=== PATIENT | male | born 1970 | race Caucasian/White ===

== ENCOUNTER 2017-03-14 08:30 | Inpatient (IN) | payer BC, MEDICAID ==
--- NOTE | 2017-03-13 07:02 | PREOPHP ---
DATE OF ADMISSION: 03/14/2017 SCHEDULED DAY OF SURGERY: 03/14/2017 REQUESTING PHYSICIAN: Dr. Cody Bailey Dear Dr. Bailey: Thank you very much for asking me to participate in the care of Mr. Wong. He is an almost 47-year-old [place] gentleman with L4-L5 disk disease on the left. He has failed all conservative attempts at treatment and is coming in electively to have this taken care of. Please note he has had a prior right- sided L4-L5 diskectomy in roughly 1997. PAST MEDICAL HISTORY: 1. Status post L4-L5 right microdiskectomy, 1997. 2. L4-L5 left-side disk disease with sciatica. 3. Usual childhood diseases. 4. History of varicella. 5. Recurrent tonsillitis with tonsillar hypertrophy. 6. Possible obstructive sleep apnea. ALLERGIES: HE HAS NO KNOWN MEDICAL ALLERGIES. MEDICATIONS: His only medications are [place] on a p.r.n. basis. HABITS: He smokes 2 packs of cigarettes a day. He has 1 unit of alcohol every other day. Denies caffeine or recreational drugs. SOCIAL HISTORY: He was born in [facility] and raised there. He has lived in the [place] since 1987. He works as a dispatcher for a business. He is and lives with his spouse and son and [id number] but no pets. FAMILY HISTORY: Positive for coronary artery disease, positive for diabetes, positive for hypertension, positive for stroke. Negative for asthma, negative for glaucoma, negative for migraine, negative for colon cancer, negative for prostate cancer, negative for anesthesia reactions. REVIEW OF SYSTEMS: HEAD AND EYES: Fully negative. EARS, NOSE, THROAT: Negative. RESPIRATORY: Negative. CARDIAC: Fully negative. GASTROINTESTINAL: Negative. HEMATOLOGIC: Negative. UROLOGIC: Negative. MUSCULOSKELETAL: Negative. NEUROLOGIC: Negative. ENDOCRINE: Negative. PSYCHIATRIC: Negative. GENERAL: No weight change. No fever, chills or sweats. No changing skin lesions, but he does have review of systems consistent with obstructive sleep apnea. PHYSICAL EXAMINATION: VITAL SIGNS: At time of physical exam, he has a height of 5 feet 9 inches, weight 212.9 pounds. Blood pressure is 128/70, pulse 84, temperature is 98.3, respirations 18. HEENT: NC/AT. PERRL, EOMI, anicteric. Fundi are without note. Tympanic membranes are without note. Oropharynx demonstrates no lesions. However, he has marked bilateral tonsillar hypertrophy. NECK: Supple. There is a midline trachea. There is no thyromegaly. RESPIRATORY: No wheezing. Normal AP diameter. CARDIAC: No JVD. Regular rate and rhythm without rubs, murmurs or gallops. ABDOMEN: Soft, nontender. Active bowel sounds. No hepatosplenomegaly, no CVA tenderness, no hernias and no bruits. EXTREMITIES: No clubbing, cyanosis or edema. However, he has significant issues with ambulation and has a very positive straight-leg raise. LABORATORY DATA: Sodium 141, potassium 4.4, chloride 102, bicarbonate 27, BUN 17, creatinine 0.7, random blood sugar 92. White count 8.3, hemoglobin 17.4, hematocrit 52.6, platelet count is 280. Protime 11.6 with an INR of 0.99, PTT is 25 seconds. Urinalysis: 1.020, pH of 7, trace blood. Dipsticks otherwise negative. EKG is sinus rhythm at 81 with intervals 0.16, 0.09, 0.36 and axis of 60 degrees , normal morphology. Chest x-ray demonstrated normal cardiac size and silhouette. Normal bones, soft tissue. Normal lungs in spite of the smoking. ASSESSMENT AND PLAN: Preoperative medical consultation prior to elective lumbar microdiskectomy on the left L4-L5. At this time I find Mr. Wong to be an acceptable surgical candidate and concur with your plans to proceed with surgery. He is at average surgical risk as compared to his age-matched peers and should do well using all standard and routine anesthesia precautions. I have gotten the patient to contract with me to hold off on all smoking between the dates of seeing him in the office and him coming in for the surgery. One additional item: Given the significant tonsillar hypertrophy and the symptoms of obstructive sleep apnea, I believe in the evening times he should have nocturnal BiPAP while he is in the hospital, and he should be a careful extubation after surgery. I will follow him along in the hospital with you. Respectfully yours, Dictated By: JOYCELYN DUVAL MD, JR/PARVIN Conf#: [id number] DID#: [id number] CC: CODY BAILEY MD;*EndCC* [facility]
[2017-03-13 15:26] VITALS: BMI 30.9
[~2017-03-14] VITALS: Ht 175.3 cm; Wt 97.6 kg
[2017-03-14] VITALS (25 sets, daily range): BP systolic 99–138; BP diastolic 58–92; PULSE 80–100; RESP 14–20; Ht 175.3 cm; Wt 97.6 kg
[2017-03-14] MEDS ORDERED: LACTATED RINGER'S 1,000 ML IV* ONE (09:30)
[2017-03-14] MEDS ORDERED: CEFAZOLIN 2 GM/50 ML (PMX) 50 ML IVPB ONE ×2 (09:30→11:26)
[2017-03-14] MEDS ORDERED: NORCO PO (09:46)
[2017-03-14] MEDS ORDERED: PROPOFOL 100 ML ONE (10:56)
[2017-03-14] MEDS ORDERED: SUCCINYLCHOLINE CHLORIDE 100 MG/5 ML SYG IV ONE (10:56)
[2017-03-14] MEDS ORDERED: FENTAnyl 50 MCG/ML VIAL ONE ×2 (10:56→12:04)
[2017-03-14] MEDS ORDERED: MIDAZOLAM 1 MG/ML 2 ML INJ ONE ×2 (10:56→12:04)
[2017-03-14] MEDS ORDERED: ROCURONIUM 50 MG INJ ONE ×2 (10:56→10:57)
--- NOTE | 2017-03-14 11:33 | HPN ---
Date/Time of Note Date/Time of Note DATE: 03/14/17 TIME: 11:33 Interval H&P Admission Note Pt. seen H&P reviewed: No system changes GOMEZ BAILEY MD Mar 14, 2017 11:33
[2017-03-14] MEDS ORDERED: BUPIVACAINE 0.25% (MPF) 10 ML 10 ML VIAL ONE (11:41)
[2017-03-14] MEDS ORDERED: POLYMYXIN/BACITRACIN 1L IRRIG ONE (11:41)
[2017-03-14] MEDS ORDERED: GELATIN SIZE 100 SPONGE ONE (11:41)
[2017-03-14] MEDS ORDERED: THROMBIN 5000 UNIT VIAL ONE (11:41)
[2017-03-14] MEDS ORDERED: ACETAMINOPHEN 1000MG/100ML IV 100 ML ONE (12:28)
[2017-03-14] MEDS ORDERED: POLYMYXIN/BACITRACIN 1L IRRIG IRR ONE (12:31)
[2017-03-14] MEDS ORDERED: BUPIVACAINE 0.25% (MPF) 10 ML 10 ML VIAL INJ ONE (12:31)
[2017-03-14] MEDS ORDERED: hydrALAzine 20 MG INJ ONE (12:44)
[2017-03-14] MEDS ORDERED: LABETALOL HCL 20MG INJ ONE (12:44)
[2017-03-14] MEDS ORDERED: PHENYLephrine (100 MCG/ML) 5ML SYG ONE (12:46)
[2017-03-14] MEDS ORDERED: EPHEDrine SULFATE 50 MG/5 ML SYG IV PRN (13:30)
[2017-03-14] MEDS ORDERED: ALBUTEROL 0.083% (NEB) 2.5 MG/3 ML AMP HHN ONE (13:30)
[2017-03-14] MEDS ORDERED: morphine (1 MG/ML) 10ML SYRINGE IV PRN ×3 (13:30)
[2017-03-14] MEDS ORDERED: MEPERIDINE 25 MG INJ IV PRN (13:30)
[2017-03-14] MEDS ORDERED: IPRATROPIUM (NEB) 0.5 MG/2.5 ML AMP HHN ONE (13:30)
[2017-03-14] MEDS ORDERED: METOCLOPRAMIDE 10 MG INJ IV PRN (13:30)
[2017-03-14] MEDS ORDERED: LABETALOL HCL 20MG INJ IV PRN (13:30)
[2017-03-14] MEDS ORDERED: ALBUMIN HUMAN 5% 250 ML IV PRN (13:30)
[2017-03-14] MEDS ORDERED: HYDROmorphONE (0.2 MG/ML) 10ML SYG IV PRN ×2 (13:30)
[2017-03-14] MEDS ORDERED: hydrALAzine 20 MG INJ IV PRN (13:30)
[2017-03-14] MEDS ORDERED: DIPHENHYDRAMINE 50 MG INJ IV PRN (13:30)
[2017-03-14] MEDS ORDERED: ONDANSETRON 4 MG INJ IV PRN ×2 (13:30→14:30)
[2017-03-14] MEDS ORDERED: GLYCOPYRROLATE 0.4 MG INJ ONE (13:35)
[2017-03-14] MEDS ORDERED: NEOSTIGMINE 3 MG/3 ML SYRINGE ONE (13:35)
[2017-03-14] MEDS ORDERED: FAMOTIDINE 20 MG INJ ONE (13:38)
[2017-03-14] MEDS: HYDROmorphONE (0.2 MG/ML) 10ML SYG IV PRN ×2 (14:12→14:37)
[2017-03-14] MEDS: DEXTROSE 5%-0.45% NACL 1,000 ML IV SCH ×2 (14:16→23:54)
--- NOTE | 2017-03-14 14:23 | OPR ---
Date/Time of Note Date/Time of Note DATE: 03/14/17 TIME: 14:19 Operative Report Preoperative Diagnosis Recurrent HNP L4-5 Postoperative Diagnosis same Operation Performed Redo left hemilaminotomy L4 Redo microdiscectomy L4-5 on the left Medial facetectomy and foraminotomy L4-5 on the left Revision of scar (3.0 cm) Lateral localizing lumbar radiographs (2) Intraoperative nerve monitoring (1 hour) Surgeon: GOMEZ BAILEY MD family practice physician assistant: TRISTAN MONTES Anesthesia: general Estimated Blood Loss: 0 - 10 ml's Specimens HNP L4-5 Tubes/Drains Two medium Hemovac drains Complications: None Pt Condition Post Procedure: stable Disposition: PACU Operative\Procedure Findings At surgery, moderately severe recurrent disc herniation at L4-5 on the left with extruded disc fragments was confirmed. GOMEZ BAILEY MD Mar 14, 2017 14:23
[2017-03-14] MEDS ORDERED: DIPHENHYDRAMINE 50 MG CAP PO PRN (14:30)
[2017-03-14] MEDS ORDERED: PROCHLORPERAZINE 10 MG TAB PO PRN (14:30)
[2017-03-14] MEDS ORDERED: ZOLPIDEM 5 MG TAB PO PRN (14:30)
[2017-03-14] MEDS ORDERED: CEPASTAT LOZENGE MT PRN (14:30)
[2017-03-14] MEDS ORDERED: TRIMETHOBENZAMIDE 100 MG/ML VIAL IM PRN (14:30)
[2017-03-14] MEDS ORDERED: DIAZEPAM 5 MG/ML SYG IM PRN (14:30)
[2017-03-14] MEDS ORDERED: AL HYDROX/MG HYDROX/SIMETH 30 ML CUP PO PRN (14:30)
[2017-03-14] MEDS ORDERED: BETHANECHOL 25 MG TAB PO PRN (14:30)
[2017-03-14] MEDS ORDERED: NALOXONE (0.4 MG/ML) INJ IV PRN (14:30)
[2017-03-14] MEDS ORDERED: HYDROCODONE/APAP (5/325) TAB PO PRN (14:30)
[2017-03-14] MEDS ORDERED: NACL 0.9% 3 ML SYG IV SCH (14:30)
[2017-03-14] MEDS ORDERED: ACETAMINOPHEN 325 MG TAB PO PRN (14:30)
[2017-03-14] MEDS: HYDROmorphONE 0.2 MG/ML PCA IV SCH (14:42)
--- NOTE | 2017-03-14 15:02 | OPR ---
DATE OF OPERATION: 03/14/2017 PREOPERATIVE DIAGNOSIS: Recurrent disk herniation, L4-L5 on the left, with extruded fragments. POSTOPERATIVE DIAGNOSIS: Recurrent disk herniation, L4-L5 on the left, with extruded fragments. OPERATIONS PERFORMED: 1. Redo left hemilaminotomy, L4. 2. Redo microdiskectomy, L4-L5 on the left. 3. Medial facetectomy and foraminotomy, L4-L5 on the left. 4. Revision of scar (3 cm). 5. Lateral localized lumbar radiographs (2). 6. Intraoperative nerve monitoring (1 hour). SURGEON: Cody Cabrera MD JOINT CUTTER MACHINE: MIROSLAVA Alexander ANESTHESIA: General endotracheal. ANESTHESIOLOGIST: Dr. Peterson ESTIMATED BLOOD LOSS: 10 mL, none replaced. DRAINS: Two medium Hemovac drains employed. COMPLICATIONS: None. PERTINENT HISTORY AND PHYSICAL: This is a 46-year-old male with severe back and left leg pain, diff iculty walking, which has been unrelieved by conservative management. He has undergone a number of diagnostic studies including an MRI of the lumbar spine which demonstrated a recurrent disk herniati on at L4-L5 on the left. Treatment options were discussed with the patient who elected to proceed with surgery. OPERATIVE FINDINGS AT SURGERY: A large recurrent disk herniation at L4-L5 on the left was confirmed . Baseline intraoperative nerve monitoring revealed a decrease in the left L4 potential of 30%, the left L5 potential of 40%. These all returned to normal at the completion of the surgery. OPERATIVE PROCEDURE: With the patient in supine position after satisfactory induction of general en dotracheal anesthesia by Dr. Peterson, the patient was turned to the prone kneeling position on the [facility] frame. All pressure points were carefully padded. Back was prepped and draped in the usual sterile fashion. Athrombic pumps were applied below the knees to prevent venous stasis during and after procedure. An indwelling follow catheter was also placed preoperatively to facilitate bladder drainage during and after the procedure. Two spinal needles were placed next to what was felt to b e the L4 and L5 spinous processes, lateral roentgenogram was taken which confirmed anatomic localiza tion. A 3.0 cm incision was carried out midline over the spinous process of L4 after the skin was i nfiltrated with 0.25% Marcaine without epinephrine for postoperative analgesia. Superficial retract ors were placed and hemostasis secured with electrocautery. Throughout the procedure, copious amoun ts of antibacterial irrigating solution were used to periodically irrigate the wound. The fascia wa s incised in midline with a hot knife and a unilateral subperiosteal dissection carried out at L4 on the left. Deep retractors were placed and deep hemostasis secured with electrocautery. A second i ntraoperative radiograph was taken with deep retractor at what was felt to be the L4-L5 interspace, and this was confirmed with a second x-ray. A redo left hemilaminotomy was then carried out using s mall Kerrison punches and curettes after the scar was peeled off of the remnant of the lamina and me dial aspect of the facet joint. The medial facetectomy and foraminotomy was then carried out using small hand osteotome, mallet, Kerrison punches, and curettes. The L5 root was mobilized medially an d protected with Belle nerve root retractor using microdissection technique. This revealed a lar ge extruded disk herniation at L4-L5 on the left. A 15 blade knife was used to cut a rectangular wi ndow in the annulus and posterior longitudinal ligament and multiple degenerative disk fragments wer e harvested with pituitary rongeurs and sent to laboratory for pathologic study. Additional fragmen ts were harvested using Julien curettes. A thorough search of the floor of the canal was made with an arthroscopic probe. No additional fragments were encountered. The epidural hemostasis was secu red with bipolar electrocautery on a low setting. The anesthesiologist was asked to perform a Valsa lva maneuver at 40 mmHg and no spinal fluid leak was noted. The wound was then closed in layers ove r 2 medium Hemovac drains, one below the fascia and one above the fascia using #1 Vicryl figure-of- eight approximating sutures in deep paralumbar musculature and deep fascia of back, 2-0 Vicryl subcu taneous approximating sutures in subQ tissue, and a 4-0 Vicryl subcuticular cosmetic closing suture on the skin. Dermabond and sterile compressive dressings were applied. The patient having tolerate d procedure well, was then turned to the supine position onto his bed and extubated by Dr. Peterson. He was transported to the recovery room in satisfactory condition. At the conclusion of the proced ure, sponge, instrument, and needle counts were all correct. NEED FOR YARD SUPERVISOR COTTON GIN: During this spinal surgical procedure, my office assistant was used to retrac t and protect the spinal nerves and dural sac. My office assistant also employed the suction catheters to e vacuate blood from the surgical field to improve visualization of the neural structures. The assista nt was medically necessary to facilitate the completion of the surgery in a safe and expeditious man ner. The [facility] regulations, as well as hospital bylaws, preclude the use of non-licensed [facility] care personnel such as operating room technicians, to perform these functions. Throughout the procedure, neuromonitoring was carried out by [employer] in cluding EMG, SSEP, and MEP monitoring of the L3, L4, L5, and S1 nerve roots bilaterally along with s ina cord potentials. These were interpreted by a neurologist employed by [employer]. Dictated By: CODY CABRERA MD TM/NTS Conf#: [id number] DID#: [id number] CC: JOYCELYN DUVAL MD;*End*
--- NOTE | 2017-03-14 16:16 | RADRPT ---
PROCEDURE: Intraoperative XR. CLINICAL INDICATION: Intraoperative radiograph during lumbar spine surgery. TECHNIQUE: Spot intraoperative lateral lumbar x-ray image was provided. The images were reviewed on a high-resolution PACS workstation. COMPARISON: None available FINDINGS: Spot intraoperative lateral lumbar view were provided during lumbar spine surgery. The images demon strate metallic instrumentation at the level of L4-5. IMPRESSION: 1. Spot intraoperative lateral lumbar view during L4-5 microdiskectomy were provided. 2. Please see operative report of the same day for further information. RPTAT: HGAS .Madi Hardin MD, Date Time Electronically viewed and signed by .Madi Hardin MD, MD on 03/14/2017 16:15 .S/
[2017-03-14] MEDS: CEFAZOLIN 1 GM/50 ML (PMX) 50 ML IVPB SCH ×2 (16:58→23:53)
[2017-03-14] MEDS ORDERED: CEFAZOLIN 1 GM/50 ML (PMX) 50 ML IVPB ONE (16:58)
--- NOTE | 2017-03-14 18:08 | PN ---
Date/Time of Note Date/Time of Note DATE: 03/14/17 TIME: 18:06 Assessment/Plan VTE Prophylaxis VTE Prophylaxis Intervention: anti-embolic stocking Lines/Catheters IV Catheter Type (from Nrsg): Peripheral IV Assessment/Plan Problems: (1) Obstructive sleep apnea hypopnea, moderate Status: Chronic Comment: Noted. The patient's been stable. As an outpatient he will need initially a tonsillectomy and then formalized sleep study and treatment. (2) Lumbar disc disease with radiculopathy Status: Chronic Comment: He is postop and significantly more comfortable. (3) Status post lumbar discectomy Status: Acute Comment: He is postop and significantly more comfortable. There is no evidence of any type of untoward or unexpected postoperative issue Subjective 24 Hr Interval Summary Free Text/Dictation Patient is postop recovering and resting in the hospital bed in his room. He reports that the preoperative pain that he had is gone. He denies other complaints. Constitutional: no complaints Respiratory: no complaints Cardiovascular: no complaints Gastrointestinal: no complaints Genitourinary: no complaints Exam/Review of Systems Vital Signs Vitals Vital Signs Date Time Temp Pulse Resp B/P Pulse Ox O2 Delivery O2 Flow Rate FiO2 03/14/17 17:47 98.0 99 19 123/78 99 03/14/17 17:00 Room Air Exam Charming gentleman lying in bed who is significantly more comfortable than he was 72 hours ago Constitutional: alert, oriented Neck: non-tender, supple Respiratory: clear to auscultation, normal air movement Cardiovascular: nl pulses, regular rate and rhythm Medications Medications Current Medications Lactated Ringer's 1,000 ml @ 20 mls/hr Q24H ONCE IV* Last administered on t 17:00; Admin Dose 20 MLS/HR; Start 03/14/17 at 09:30; Stop 03/15/17 at 09:29 Dextrose/Sodium Chloride (D5-1/2ns) 1,000 ml @ 100 mls/hr Q10H IV ; Start at 14:16 Acetaminophen/ Hydrocodone Bitart ([place] (5/325)) 1 tab Q4H PRN PO PAIN LEVEL 1 -5; Start 03/14/17 at 14:30 Acetaminophen/ Hydrocodone Bitart 2 tab 2 tab Q4H PRN PO PAIN LEVEL 6-10; Start 03/14/17 at 14:30 Cefazolin Sodium (Ancef 1 Gm/50 ml (Pmx)) 50 ml @ 100 mls/hr Q6 IVPB Last administered on 03/14/17t 16:58; Admin Dose 100 MLS/HR; Start 03/14/17 at 18:00; Stop 03/15/17 at 12:29 Zolpidem Tartrate (Ambien) 5 mg HS PRN PO INSOMNIA; Start 03/14/17 at 14:30 Prochlorperazine (Compazine) 10 mg Q4H PRN PO NAUSEA AND/OR VOMITING; Start 03/14/17 at 14:30 Trimethobenzamide HCl (Tigan) 200 mg Q4H PRN IM NAUSEA AND/OR VOMITING; Start 03/14/17 at 14:30 Ondansetron HCl (Zofran Inj) 4 mg Q6H PRN IV NAUSEA AND/OR VOMITING; Start 03/14 at 14:30 Al Hydrox/Mg Hydrox/Simethicone (Mag-Al Plus) 15 ml Q4H PRN PO CONSTIPATION; Start 03/14/17 at 14:30 Docusate Sodium (Colace) 100 mg BID PO ; Start 03/15/17 at 09:00 Acetaminophen (Tylenol Tab) 650 mg Q4H PRN PO TEMP GREATER THAN 101F OR CARTER; Start 03/14/17 at 14:30 Ascorbic Acid (Vitamin C) 1,000 mg BID PO ; Start 03/15/17 at 09:00 Ferrous Sulfate (Ferrous Sulfate (Ec)) 325 mg TID PO ; Start 03/15/17 at 09:00 Ranitidine HCl (Zantac) 150 mg BID PO ; Start 03/14/17 at 21:00 Diazepam (Valium) 5 mg Q4H PRN PO MUSCLE SPASMS; Start 03/14/17 at 14:30 Diazepam (Valium) 5 mg Q4H PRN IM MUSCLE SPASMS; Start 03/14/17 at 14:30 Phenol (Cepastat Lozenge) 1 lozenge PRN PRN MT SORE THROAT; Start 03/14/17 at 14 :30 Bethanechol Chloride (Urecholine) 25 mg PRN PRN PO UNABLE TO VOID; Start at 14:30 Diphenhydramine HCl (Benadryl) 50 mg Q6H PRN PO PRURITUS; Start 03/14/17 at 14: 30 Hydromorphone HCl (Dilaudid PR[employer]ARDS ROUTER) Q4PCA IV Last administered on 03/14/17t 14:42 ; Admin Dose 6 MG; Start 03/14/17 at 14:30 Naloxone HCl (Narcan) 0.2 mg Q2M PRN IV RR 8 BREATHS/MIN OR LESS; Start at 14:30 JOYCELYN DUVAL MD Mar 14, 2017 18:08
--- NOTE | 2017-03-14 18:56 | RADRPT ---
PROCEDURE: Intraoperative XR. CLINICAL INDICATION: Intraoperative radiograph during L4-5 microdiskectomy. TECHNIQUE: Spot intraoperative lateral lumbar x-ray image was provided. The images were reviewed on a high-resolution PACS workstation. COMPARISON: None available FINDINGS: Spot intraoperative lateral lumbar view were provided during L4-5 microdiskectomy. The images demon strate metallic probes at the level of L4 and L5. IMPRESSION: 1. Spot intraoperative lateral lumbar view during L4-5 microdiskectomy were provided. 2. Please see operative report of the same day for further information. RPTAT: HGAS .Madi Hardin MD, Date Time Electronically viewed and signed by .Madi Hardin MD, on 03/14/2017 18:56 .S/
[2017-03-14] MEDS: RANITIDINE 150 MG TAB PO SCH (20:19)
[2017-03-14] MEDS: DIAZEPAM 5 MG TAB PO PRN (22:34)
[2017-03-15 00:15] VITALS: BP 134/74; RESP 20
[2017-03-15] MEDS: HYDROmorphONE 0.2 MG/ML PCA IV SCH (00:51)
[2017-03-15] MEDS: DIAZEPAM 5 MG TAB PO PRN (03:30)
[2017-03-15 05:15] LABS: HEMATOCRIT 40.8 % (42.0-52.0); HEMOGLOBIN 13.7 g/dl (14.0-18.0)
[2017-03-15] MEDS: CEFAZOLIN 1 GM/50 ML (PMX) 50 ML IVPB SCH ×2 (05:20→12:25)
[2017-03-15 05:34] LABS: CALCIUM 8.9 mg/dl (8.4-10.2); CREATININE 0.7 mg/dl (0.61-1.24); POTASSIUM 3.9 mmol/L (3.5-5.1)
--- NOTE | 2017-03-15 07:02 | PN ---
Date/Time of Note Date/Time of Note DATE: 03/15/17 TIME: 07:01 Assessment/Plan Lines/Catheters IV Catheter Type (from Nrs): Saline Lock Jeter in Place (from Nrsg): No Subjective 24 Hr Interval Summary The patient is postop day #1 following a redo microdiscectomy at L4-5 on the left. He is resting comfortably in bed. His neurovascular structures are intact distally. His morning lab work is unremarkable. He has minimal drainage from his Hemovac, and will be discontinued. He will be seen by physical therapy, and may be discharged later today if cleared by physical therapy. Follow-up instructions have been given Exam/Review of Systems Vital Signs Vitals Vital Signs Date Time Temp Pulse Resp B/P Pulse Ox O2 Delivery O2 Flow Rate FiO2 03/15/17 05:02 18 03/15/17 00:15 98.6 91 134/74 97 03/14/17 20:30 Room Air Intake and Output 03/14/17 03/14/17 03/15/17 15:00 23:00 07:00 Intake Total 1400 ml 200 ml 1875 ml Output Total 270 ml 505 ml 1972 ml Balance 1130 ml -305 ml -97 ml Results Result Diagram: 03/15/17 0430 03/15/17 0430 GOMEZ BAILEY MD Mar 15, 2017 07:02
[2017-03-15] MEDS ORDERED: BETHANECHOL 25 MG TAB PO PRN (08:00)
--- NOTE | 2017-03-15 08:29 | PN ---
Date/Time of Note Date/Time of Note DATE: 03/15/17 TIME: 08:27 Assessment/Plan VTE Prophylaxis VTE Prophylaxis Intervention: SCD's Lines/Catheters IV [facility] Saline Lock Urinary Cath still in place: No Assessment/Plan Problems: (1) Obstructive sleep apnea hypopnea, moderate Status: Chronic Comment: Noted. This will be addressed as an outpatient. (2) Status post lumbar discectomy Status: Acute Comment: It appears he is going to have a good outcome. There is been no surgical complications or other types of unexpected postoperative issues. Assuming that physical therapy gets him straightened away and be discharged later today. Subjective 24 Hr Interval Summary Free Text/Dictation Patient resting in bed reports he feels much better. No offered complaints. Constitutional: no complaints (No fevers chills or sweats) Respiratory: no complaints Cardiovascular: no complaints Gastrointestinal: no complaints Musculoskeletal: back pain (Incisional back pain) Neurologic: no complaints (Symptoms improved postop) Exam/Review of Systems Vital Signs Vitals Vital Signs Date Time Temp Pulse Resp B/P Pulse Ox O2 Delivery O2 Flow Rate FiO2 03/15/17 05:02 18 03/15/17 00:15 98.6 91 134/74 97 03/14/17 20:30 Room Air Intake and Output 03/14/17 03/14/17 03/15/17 15:00 23:00 07:00 Intake Total 1400 ml 200 ml 1875 ml Output Total 270 ml 505 ml 1972 ml Balance 1130 ml -305 ml -97 ml Exam Constitutional: alert, oriented Respiratory: clear to auscultation, normal air movement Cardiovascular: nl pulses, regular rate and rhythm Gastrointestinal: nl liver, spleen, non-tender, soft Extremities: normal pulses, other (Able to move extremities) Results Result Diagram: 03/15/17 0430 03/15/17 0430 Results 24 hrs Laboratory Tests Test 03/15/17 04:30 Hemoglobin 13.7 L Hematocrit 40.8 L Sodium Level 140 Potassium Level 3.9 Chloride Level 106 Carbon Dioxide Level 27 Anion Gap 11 Blood Urea Nitrogen 8 Creatinine 0.70 Glucose Level 109 Calcium Level 8.9 Medications Medications Current Medications Lactated Ringer's 1,000 ml @ 20 mls/hr Q24H ONCE IV* Last administered on t 17:00; Admin Dose 20 MLS/HR; Start 03/14/17 at 09:30; Stop 03/15/17 at 09:29 Dextrose/Sodium Chloride (D5-1/2ns) 1,000 ml @ 100 mls/hr Q10H IV Last administered on 03/14/17 23:54; Admin Dose 100 MLS/HR; Start 03/14/17 at 14:16 Acetaminophen/ Hydrocodone Bitart ([place] (5/325)) 1 tab Q4H PRN PO PAIN LEVEL 1 -5; Start 03/14/17 at 14:30 Acetaminophen/ Hydrocodone Bitart 2 tab 2 tab Q4H PRN PO PAIN LEVEL 6-10; Start 03/14/17 at 14:30 Cefazolin Sodium (Ancef 1 Gm/50 ml (Pmx)) 50 ml @ 100 mls/hr Q6 IVPB Last administered on 03/15/17 05:20; Admin Dose 100 MLS/HR; Start 03/14/17 at 18:00; Stop 03/15/17 at 12:29 Zolpidem Tartrate (Ambien) 5 mg HS PRN PO INSOMNIA; Start 03/14/17 at 14:30 Prochlorperazine (Compazine) 10 mg Q4H PRN PO NAUSEA AND/OR VOMITING; Start 03/14/17 at 14:30 Trimethobenzamide HCl (Tigan) 200 mg Q4H PRN IM NAUSEA AND/OR VOMITING; Start 03/14/17 at 14:30 Ondansetron HCl (Zofran Inj) 4 mg Q6H PRN IV NAUSEA AND/OR VOMITING; Start 03/14 at 14:30 Al Hydrox/Mg Hydrox/Simethicone (Mag-Al Plus) 15 ml Q4H PRN PO CONSTIPATION; Start 03/14/17 at 14:30 Docusate Sodium (Colace) 100 mg BID PO ; Start 03/15/17 at 09:00 Acetaminophen (Tylenol Tab) 650 mg Q4H PRN PO TEMP GREATER THAN 101F OR CARTER; Start 03/14/17 at 14:30 Ascorbic Acid (Vitamin C) 1,000 mg BID PO ; Start 03/15/17 at 09:00 Ferrous Sulfate (Ferrous Sulfate (Ec)) 325 mg TID PO ; Start 03/15/17 at 09:00 Ranitidine HCl (Zantac) 150 mg BID PO Last administered on 03/14/17 20:19; Admin Dose 150 MG; Start 03/14/17 at 21:00 Diazepam (Valium) 5 mg Q4H PRN PO MUSCLE SPASMS Last administered on 03/15/17 03:30; Admin Dose 5 MG; Start 03/14/17 at 14:30 Diazepam (Valium) 5 mg Q4H PRN IM MUSCLE SPASMS; Start 03/14/17 at 14:30 Phenol (Cepastat Lozenge) 1 lozenge PRN PRN MT SORE THROAT; Start 03/14/17 at 14 :30 Bethanechol Chloride (Urecholine) 25 mg PRN PRN PO UNABLE TO VOID; Start at 14:30 Diphenhydramine HCl (Benadryl) 50 mg Q6H PRN PO PRURITUS; Start 03/14/17 at 14: 30 Hydromorphone HCl (Dilaudid DRUM REEL CUTTER) Q4PCA IV Last administered on 03/15/17 00:51 ; Admin Dose 6 MG; Start 03/14/17 at 14:30 Naloxone HCl (Narcan) 0.2 mg Q2M PRN IV RR 8 BREATHS/MIN OR LESS; Start at 14:30 Bethanechol Chloride (Urecholine) 25 mg PRN PRN PO UNABLE TO VOID; Start at 08:00 JOYCELYN DUVAL MD Mar 15, 2017 08:29
[2017-03-15 09:00] VITALS: BP 144/86; RESP 20
[2017-03-15] MEDS ORDERED: ASCORBIC ACID 500 MG TAB PO SCH (09:00)
[2017-03-15] MEDS ORDERED: DOCUSATE SODIUM 100 MG CAP PO SCH (09:00)
[2017-03-15] MEDS: FERROUS SULFATE (EC) 325 MG TAB PO SCH ×2 (09:18→13:00)
[2017-03-15] MEDS: RANITIDINE 150 MG TAB PO SCH (09:18)
[2017-03-15] MEDS: DEXTROSE 5%-0.45% NACL 1,000 ML IV SCH (10:16)
[2017-03-15] MEDS: HYDROCODONE/APAP (5/325) TAB PO PRN ×2 (10:16→14:47)
--- NOTE | 2017-03-19 11:28 | DS ---
Date/Time of Note Date/Time of Note DATE: 03/19/17 TIME: 11:27 Discharge Summary Admission/Discharge Info Admit Date/Time Mar 14, 2017 at 08:30 Discharge Date/Time Mar 15, 2017 at 14:45 Final Diagnosis Recurrent disk herniation, L4-L5 on the left, with extruded fragments. Patient Condition: Fair Hospital Course Pt did well post-operatively. His pain was well controlled. Hie diet and activity were advanced as tolerated. He was discharged to home in good condition on POD #1 Home Meds Reported Medications [Ray] No Conflict Check, PO Y for PAIN 03/14/17 Follow-up Plan Follow up with Dr. Cabrera in 1-2 weeks Primary Care Provider Not On Staff Doctor TIMO MORENO Mar 19, 2017 11:28
== END 2017-03-15 14:45 | disposition home or self-care (01) | DRG 520 ==
LOC: REC 08:30 → EDSEX 11:00 → MS1 17:35
PROVIDERS: ADMIT Orthopaedic Surgery; ATTEND Orthopaedic Surgery
PROC: 0SB20ZZ Excision of Lumbar Vertebral Disc, Open Approach (ICD-10-PCS; principal; 2017-03-14 11:00)
DX: M51.16 Intervertebral disc disorders with radiculopathy, lumbar region (principal); G47.33 Obstructive sleep apnea (adult) (pediatric); Z72.0 Tobacco use
CPT/HCPCS: 72020; 80048; 85014; 85018; 86850; 86900; 86901; 86920; 97116; 97163; 97530; J0131; J0360; J0690; J1170; J1200; J2175; J2250; J2370; J2405; J2710; J3010; J7042; J7999